=== PATIENT | male | born 1945 | race Caucasian/White ===

== ENCOUNTER → 2018-06-08 | Outpatient (CLI) | payer OTHER ==
[2014-05-14 10:26] VITALS: BP 183/84
[~2018-06-08] MED LIST: HYDR50TA6 PO; IBUP400T18 PO; SIMV10TA3 PO
== END | disposition home or self-care (01) ==
LOC: SURG 09:36
PROVIDERS: ATTEND Anesthesiology
DX: M47.26 Other spondylosis with radiculopathy, lumbar region (principal); I10 Essential (primary) hypertension; J44.9 Chronic obstructive pulmonary disease, unspecified; Z96.642 Presence of left artificial hip joint; Z98.890 Other specified postprocedural states; Z79.899 Other long term (current) drug therapy
CPT/HCPCS: 99204

== ENCOUNTER → 2018-08-13 | Outpatient (CLI) | payer OTHER ==
[2014-05-14 10:26] VITALS: BP 183/84
--- NOTE | 2018-08-13 18:21 | RAD ---
3 view radiographs of the right fifth finger 08/13/2018 CLINICAL HISTORY: Right fifth finger pain for 3 months. A PA digital radiograph the right hand was obtained. Oblique and lateral digital radiographs of the right fifth finger were obtained. No fracture or dislocation of the right fifth finger is seen. No radiopaque foreign body is noted. No significant degenerative changes are seen. Mild to moderate degenerative changes are seen involving the MCP joint of the right thumb. IMPRESSION: No acute osseous abnormality is seen. Electronically signed by: Khoi Morley MD (08/13/2018 6:17 PM) [facility]
== END | disposition home or self-care (01) ==
LOC: DXRAD 16:37
PROVIDERS: ATTEND Physician Assistant
DX: M19.041 Primary osteoarthritis, right hand (principal)
CPT/HCPCS: 73140

== ENCOUNTER → 2018-08-24 | Outpatient (CLI) | payer OTHER ==
[2014-05-14 10:26] VITALS: BP 183/84
[~2018-08-24] MED LIST changes: +0.9 % SODIUM CHLORIDE 10 ML VIAL ONE; +BUPIVACAINE MPF 0.25% 10 ML VIAL. ONE; +IOHEXOL 300 MG/ML 50 ML VIAL. ONE; +LIDOCAINE 1% PF 30 ML VIAL. ONE; +methylPREDNISolone ACETATE 80 MG/ML VIAL. ONE
== END | disposition home or self-care (01) ==
LOC: SURG 10:49
PROVIDERS: ATTEND Anesthesiology
DX: M54.16 Radiculopathy, lumbar region (principal); M96.1 Postlaminectomy syndrome, not elsewhere classified; I10 Essential (primary) hypertension; J45.909 Unspecified asthma, uncomplicated; Z72.89 Other problems related to lifestyle; Z98.890 Other specified postprocedural states; Z79.899 Other long term (current) drug therapy
CPT/HCPCS: 62323; J1040; J2001; J3490; Q9967

== ENCOUNTER → 2018-09-21 | Outpatient (CLI) | payer OTHER ==
[2014-05-14 10:26] VITALS: BP 183/84
[~2018-09-21] MED LIST changes: -0.9 % SODIUM CHLORIDE 10 ML VIAL ONE; -BUPIVACAINE MPF 0.25% 10 ML VIAL. ONE; -IOHEXOL 300 MG/ML 50 ML VIAL. ONE; -LIDOCAINE 1% PF 30 ML VIAL. ONE; -methylPREDNISolone ACETATE 80 MG/ML VIAL. ONE
== END | disposition home or self-care (01) ==
LOC: SURG 11:23
PROVIDERS: ATTEND Anesthesiology
DX: M47.26 Other spondylosis with radiculopathy, lumbar region (principal); J44.9 Chronic obstructive pulmonary disease, unspecified; I10 Essential (primary) hypertension; M19.90 Unspecified osteoarthritis, unspecified site; Z96.642 Presence of left artificial hip joint; Z79.899 Other long term (current) drug therapy; Z98.890 Other specified postprocedural states
CPT/HCPCS: 99214

== ENCOUNTER → 2018-11-19 | Outpatient (CLI) | payer OTHER ==
[2014-05-14 10:26] VITALS: BP 183/84
--- NOTE | 2018-11-19 16:56 | RAD ---
Chest, 2 views, 11/19/2018: HISTORY: Dyspnea on exertion, former smoker Comparison is made to a study from 10/04/2013. The heart size and pulmonary vascularity are normal. There is calcific plaquing of the aorta. There is minimal linear basilar scarring and/or atelectasis. The upper lung pardo are clear. There is no evidence of pleural fluid. Moderate multilevel degenerative change is present in the spine. IMPRESSION: Minimal bibasilar linear scarring or atelectasis. Electronically signed by: Fuad Boswell MD (11/19/2018 4:53 PM) [facility]
== END | disposition home or self-care (01) ==
LOC: PMG 16:26
PROVIDERS: ATTEND Physician Assistant
DX: R06.09 Other forms of dyspnea (principal); M47.899 Other spondylosis, site unspecified; Z87.891 Personal history of nicotine dependence
CPT/HCPCS: 71046

== ENCOUNTER → 2019-01-18 | Outpatient (CLI) | payer OTHER ==
[2014-05-14 10:26] VITALS: BP 183/84
--- NOTE | 2019-01-18 14:51 | RAD ---
NECK SOFT TISSUE History: Neck swelling, pain Comparison: None. Findings: Sonographic images of the neck are submitted. There are a few small nonspecific nodes of the bilateral neck not considered significantly enlarged, preserved sonographic architecture. Dominant node of the left neck measures about 1 x 0.6 x 0.7 cm. Largest on the right measures about 0.4 x 0.4 x 1.3 cm. Otherwise no other abnormality is demonstrated of the neck. Impression: 1. There are some nonspecific nodes of the visualized bilateral neck, not considered significantly enlarged. Electronically signed by: Franklin Paz MD (01/18/2019 2:48 PM) [facility]
== END | disposition home or self-care (01) ==
LOC: US 12:40
PROVIDERS: ATTEND Physician Assistant
DX: R22.1 Localized swelling, mass and lump, neck (principal)
CPT/HCPCS: 76536

== ENCOUNTER → 2019-05-05 | Outpatient (CLI) | payer OTHER ==
[2014-05-14 10:26] VITALS: BP 183/84
[~2019-05-05] MED LIST changes: +REGADENOSON 0.4 MG/5 ML DISP.SYRIN. IV ONE
--- NOTE | 2019-05-06 08:05 | RAD ---
MR#: [id number] Date of Study: 05/05/2019 Ordering Physician: ROSETTE FARRAR, Referring Physician: LATISHA GRIJALVA Tech: RT Isidoro (R) (N) APPROVED REPORT Test Type: Pharmacological Test Indications: A-fib Cardiac History: No known cardiac Medications: See EHR Resting Heart Rate: 57 bpm Resting Blood Pressure: 165/68mmHg Pretest Chest Pain: None Pharm. Details Pharmacologic stress testing was performed using 0.4mg per 5ml of regadenoson given intravenously ove r 7-10 seconds. POST EXERCISE Reason for Termination: Infusion complete Max HR: 88 bpm Chest Pain: No. INTERPRETATION Stress EKG Conclusion: No evidence of stress induced EKG changes. Imaging Protocol IMAGE PROTOCOL: Rest Tc-99m/stress Tc-99m 1 day Rest: Stress: Viability: Radiopharm.Tc99m UwlmuwxvoHa83g Sestamibi Vczm17sEs 34mCi Duration 15min. 15min. Img Date 05/05/2019 05/05/2019 Inj-Img Furh08bvm. 60min. Rest Admin Site:IV - Left AntecubitalAdministrator: RT Isidoro (R)(N) Stress Admin Site: IV - Left AntecubitalAdministrator: RT Isidoro (R)(N) STRESS DATA End Diast. Vol.161.0mlAv. Heart Rate62.0bpm End Syst. Vol.66.0mlCO Index BSA5.9L/min Myocardial Otvl393.0gEject. Txfwwqth46.0% Stress Rates Pk. Fill Rate2.39EDV/secLVtime Pk. Fill 159.66msec Pk. Empty Rate2.72ESV/secLVtime Pk. Sgwsa960.83msec 1/3 Pk. Fill1.38EDV/sec Stress Scores Regional WT0.00Summed WT3.00 Regional WM0.00Summed WM2.00 The rest and stress images show normal perfusion, normal contraction and thickening. LV Perf. Quant 17 Seg. SSS0.00 17 Seg. SRS8.00 17 Seg. SDS0.00 Stress Defect Extent (% LAD)0.00Rest Defect Extent (% LAD)3.80Rev. Defect Extent (% LAD)0.00 Stress Defect Extent (% LCX) 0.00Rest Defect Extent (% LCX)12.50Rev. Defect Extent (% LCX)0.00 Stress Defect Extent (% RCA)0.00Rest Defect Extent (% RCA)6.70Rev. Defect Extent (% RCA)0.00 Stress Defect Extent (% RACHAEL)0.00Rest Defect Extent (% RACHAEL)5.70Rev. Defect Extent (% RACHAEL)0.00 Other Information Quality:Average Risk Assessment: Low Risk Conclusion 1. No evidence of EKG changes with stress testing. 2. Normal perfusion at stress/rest. 3. Low risk study. 4. EF > 60%. Signed by : Rosette Farrar, Electronically Approved : 05/06/2019 08:05:05
== END | disposition home or self-care (01) ==
LOC: NM 07:54
PROVIDERS: ATTEND Internal Medicine Cardiovascular Disease
DX: I48.91 Unspecified atrial fibrillation (principal)
CPT/HCPCS: 78452; 93017; A9500

== ENCOUNTER → 2019-06-15 | Outpatient (CLI) | payer OTHER ==
[2014-05-14 10:26] VITALS: BP 183/84
[~2019-06-15] MED LIST changes: -REGADENOSON 0.4 MG/5 ML DISP.SYRIN. IV ONE
--- NOTE | 2019-06-15 15:43 | RAD ---
ELBOW LEFT 3V 06/15/2019 12:00 AM INDICATION: Elbow pain COMPARISON: None available. TECHNIQUE: 3 views of the left elbow are provided. FINDINGS: There is no acute fracture or dislocation. Bone mineralization is within normal limits. Joint spaces are maintained. Regional soft tissues are within normal limits. There is no soft tissue gas or osseous erosion. There is an 8 mm ossific body in the posterior joint space.s no definite elbow joint effusion. IMPRESSION: No acute fracture or dislocation. There is an 8 mm ossific body along the posterior joint space with associated soft tissue swelling. Consideration may be given for prior fracture fragment. Further evaluation with cross-sectional imaging may be of benefit. Electronically signed by: Stefany Salguero MD (06/15/2019 3:40 PM) [facility]
== END | disposition home or self-care (01) ==
LOC: RAD 15:06
PROVIDERS: ATTEND Physician Assistant
DX: M25.522 Pain in left elbow (principal); M79.89 Other specified soft tissue disorders
CPT/HCPCS: 73080

== ENCOUNTER → 2020-06-26 | Outpatient (CLI) | payer MEDICARE ==
[2014-05-14 10:26] VITALS: BP 183/84
[~2020-06-26] MED LIST changes: +SIMV10TA15 PO; -SIMV10TA3 PO
[2020-06-26 11:20] LABS: BASO # 0.1 x10^3/uL (0.0-0.2); BASO % 1 % (0-3); EOS # 0.3 x10^3/uL (0.0-0.7); EOS % 5 % (0-3); HEMATOCRIT 38.1 % (39.0-53.0); HEMOGLOBIN 12.6 g/dL (13.0-17.5); LYMPH # 1.7 x10^3/uL (1.0-4.8); LYMPH % 29 % (24-48); MEAN CORPUSCULAR HEMOGLOBIN 31 pg (25-35); MEAN CORPUSCULAR HGB CONC 33 g/dL (31-37); MEAN CORPUSCULAR VOLUME 93 fL (79-100); MONO # 0.6 x10^3/uL (0.0-1.1); MONO % 10 % (0-9); NEUT # 3.2 x10^3uL (1.8-7.7); NEUT % 56 % (31-73); PLATELET COUNT 262 x10^3/uL (140-400); RED BLOOD COUNT 4.08 x10^6/uL (4.30-5.70); RED CELL DISTRIBUTION WIDTH 14.2 % (11.5-14.5); WHITE BLOOD COUNT 5.8 x10^3/uL (4.0-11.0)
[2020-06-26 11:25] LABS: ALBUMIN/GLOBULIN RATIO 1.3 (1.0-1.7); CREATININE 1.1 mg/dL (0.7-1.3); GFR 65.6; POTASSIUM 4.6 mmol/L (3.5-5.1); TOTAL BILIRUBIN 0.5 mg/dL (0.2-1.0); TOTAL PROTEIN 7.1 g/dL (6.4-8.2)
--- NOTE | 2020-06-26 14:14 | CARD ---
MR#: [id number] Date of Study: 06/26/2020 Ordering Physician: ROSETTE RODRIGUEZ, Referring Physician: ROSETTE RODRIGUEZ, Tech: Janessa Way APPROVED REPORT EXAM: Two-dimensional and M-mode echocardiogram with Doppler and color Doppler. Other Information Quality : AverageHR: 53bpm INDICATION Atrial Fibrillation 2D DIMENSIONS RVDd3.2 (2.9-3.5cm)Left Atrium(2D)3.4 (1.6-4.0cm) IVSd1.0 (0.7-1.1cm)Aortic Root(2D)3.5 (2.0-3.7cm) LVDd5.3 (3.9-5.9cm)LVOT Diameter2.1 (1.8-2.4cm) PWd0.9 (0.7-1.1cm)LVDs3.5 (2.5-4.0cm) FS (%) 33.4 %SV82.5 ml LVEF(%)61.7 (>50%) Aortic Valve AoV Peak Nir.126.9cm/sAoV VTI32.0cm AO Peak GR.6.4mmHgLVOT Peak Nir.93.1cm/s LVOT VTI 21.82cmAO Mean GR.4mmHg ZAID (VMAX)2.34jl6NBV (VTI)2.38cm2 Mitral Valve MV E Jaaywxrm87.5cm/sMV DECEL [id number] MV A Mmbqyukz50.4cm/sE/A Ratio1.3 Pulmonary Valve PV Peak Pwvusysr32.4cm/sPV Peak Grad.3mmHg Tricuspid Valve TR P. Niwuvixc734rs/sRAP HDGTBKFZ1euWi TR Peak Gr.88akQeUZDS68bsVg Pulmonary Vein S1 Svedahlr73.8cm/sD2 Dppzhxnx28.5cm/s LEFT VENTRICLE The Left Ventricle is mildly dilated. There is normal left ventricular wall thickness. The left ventr icular systolic function is normal and the ejection fraction is within normal range. The Ejection Fra ction is 50-55%. There is normal LV segmental wall motion. Transmitral Doppler flow pattern is Grade II-pseudonormal filling dynamics. RIGHT VENTRICLE The right ventricle is normal size. There is normal right ventricular wall thickness. The right ventr icular systolic function is normal. ATRIA The left atrium is borderline dilated. The right atrium is borderline dilated. The interatrial septum is intact with no evidence for an atrial septal defect or patent foramen ovale as noted on 2-D or Do ppler imaging. AORTIC VALVE The aortic valve is normal in structure and function. Doppler and Color Flow revealed no significant aortic regurgitation. There is no significant aortic valvular stenosis. Calculated aortic valve area is 2.6 cm2 with maximum pressure gradient of 7 mmHg and mean pressure gradient of 3 mmHg. MITRAL VALVE The mitral valve is normal in structure and function. There is no evidence of mitral valve prolapse. There is no mitral valve stenosis. Doppler and Color-flow revealed trace to mild mitral regurgitation . TRICUSPID VALVE The tricuspid valve is normal in structure and function. Doppler and Color Flow revealed trace tricus pid regurgitation with an estimated PAP of 31 mmHg. There is no tricuspid valve stenosis. PULMONIC VALVE The pulmonic valve is not well visualized. Doppler and Color Flow revealed trace pulmonic valvular re gurgitation. There is no pulmonic valvular stenosis. GREAT VESSELS The aortic root is normal in size. The IVC is normal in size and collapses >50% with inspiration. PERICARDIAL EFFUSION There is no evidence of significant pericardial effusion. Critical Notification Critical Value: No <Conclusion> The left ventricular systolic function is normal and the ejection fraction is within normal range. Th e Ejection Fraction is 50-55%. There is normal LV segmental wall motion. The Left Ventricle is mildly dilated. Signed by : Rosette Rodriguez, Electronically Approved : 06/26/2020 14:13:59
== END ==
LOC: ECHO 08:09
PROVIDERS: ATTEND Internal Medicine Cardiovascular Disease
DX: I34.0 Nonrheumatic mitral (valve) insufficiency (principal); I48.91 Unspecified atrial fibrillation; I10 Essential (primary) hypertension
CPT/HCPCS: 36415; 80053; 80061; 85025; 93306

== ENCOUNTER → 2020-10-31 | Outpatient (CLI) | payer MEDICARE ==
[2014-05-14 10:26] VITALS: BP 183/84
[~2020-10-31] MED LIST changes: -HYDR50TA6 PO; +HYDR50TA9 PO
--- NOTE | 2020-11-01 00:16 | RAD ---
Study: XR HAND_RIGHT 2 VIEWS Indication: Right hand pain along the fifth digit. Comparison: 08/13/2018 Findings: No acute fracture seen to involve the little finger or rest of the hand. Thin focus of mineralization along the ulnar aspect of the fifth metacarpal bases favored chronic. Maintained MCP and IP joint sp aces. Only mild arthrosis involving the thumb. Widened scapholunate interval in keeping with scapholunate ligament disruption. Rotatory subluxation of the scaphoid and there is proximal migration of the lunate contacting the distal ulna. Degenerativ e changes of the distal radioulnar joint. Radial scaphoid joint space narrowing. Mild triscaphe arthr osis. Soft tissue mineralization along the volar more so than dorsal aspects of the wrist. Impression: 1. No acute fracture or traumatic malalignment. 2. 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 Electronically signed by: RADHA SUN MD (11/01/2020 12:14 AM) [facility]
== END ==
LOC: PMG 16:31
PROVIDERS: ATTEND Physician Assistant
DX: S63.071A Subluxation of distal end of right ulna, initial encounter (principal); M19.041 Primary osteoarthritis, right hand; X58.XXXA Exposure to other specified factors, initial encounter; Y93.89 Activity, other specified; Y92.89 Other specified places as the place of occurrence of the external cause; Y99.8 Other external cause status
CPT/HCPCS: 73120

== ENCOUNTER → 2021-06-13 | Outpatient (CLI) | payer MEDICARE ==
[2014-05-14 10:26] VITALS: BP 183/84
--- NOTE | 2021-06-13 16:07 | RAD ---
EXAM: Right knee, 2 views. HISTORY: Pain. COMPARISON: None. FINDINGS: 2 views of the right knee are obtained. There is medial compartment joint space narrowing, subchondral sclerosis and trochlea bilateral spurring. There are multiple joint loose bodies. There i s chondrocalcinosis. There is a small joint effusion. There are vascular calcifications. There is no acute fracture, dislocation or subluxation. IMPRESSION: 1. Moderate medial compartment predominant osteoarthritis of the right knee with chondrocalcinosis, j oint loose bodies and small joint effusion. 2. No acute osseous finding. Electronically signed by: Celsa Henderson MD (06/13/2021 4:05 PM) [id number]
== END ==
LOC: RAD 15:41
DX: M17.11 Unilateral primary osteoarthritis, right knee (principal); M11.261 Other chondrocalcinosis, right knee; M25.461 Effusion, right knee; M25.861 Other specified joint disorders, right knee
CPT/HCPCS: 73560